=== PATIENT | female | born 1985 | race Caucasian/White ===

== ENCOUNTER 2020-02-03 22:11 | Emergency (ER) | payer BC ==
[2020-02-03] MEDS ORDERED: ZOLOFT25 M1 PO (22:26)
[2020-02-04 00:12] VITALS: BP 148/96
[2020-02-04] MEDS ORDERED: PREDNISONE20 M1 PO (00:13)
== END 2020-02-04 00:16 | disposition home or self-care (01) ==
LOC: ED 22:11
DX: T78.1XXA Other adverse food reactions, not elsewhere classified, initial encounter (principal); L29.9 Pruritus, unspecified; L50.9 Urticaria, unspecified
CPT/HCPCS: J1200; J2930; J3490; J7030

== ENCOUNTER 2020-09-01 02:04 | Emergency (ER) | payer BC ==
[~2020-09-01 02:04] MED LIST: PREDNISONE20 M1 PO; ZOLOFT25 M1 PO
[2020-09-01 03:14] LABS: URINE APPEARANCE CLOUDY; URINE COLOR DK RED; URINE PROTEIN(semi-quant) 3+ mg/dL (NEGATIVE)
[2020-09-01 03:15] LABS: URINE BILIRUBIN NEGATIVE (NEGATIVE); URINE BLOOD 250 ery/uL (NEGATIVE); URINE GLUCOSE NEGATIVE (NEGATIVE); URINE KETONE NEGATIVE (NEGATIVE); URINE LEUKOCYTE ESTERASE 2+ (NEGATIVE); URINE MUCUS PRESENT (NOT PRESENT); URINE NITRATE POSITIVE (NEGATIVE); URINE UROBILINOGEN NORMAL (NORMAL); URINE WBC >50 /hpf (0-3)
[2020-09-01] MEDS ORDERED: CEPHALEXIN500 M1 PO (03:31)
[2020-09-01 03:43] VITALS: BP 124/71
== END 2020-09-01 03:44 | disposition home or self-care (01) ==
LOC: ED 02:04
PROVIDERS: Nurse Practitioner Family
DX: N30.01 Acute cystitis with hematuria (principal)

== ENCOUNTER → 2022-11-22 | Outpatient (CLI) | payer BC ==
[~2022-11-22] MED LIST changes: +CEPHALEXIN500 M1 PO
== END ==
LOC: RAD 07:07
DX: R10.11 Right upper quadrant pain (principal)